=== PATIENT | female | born 1950 ===

== ENCOUNTER 2021-08-05 14:18 | Outpatient (RCR) | payer MEDICARE, MEDICAID, SELFPAY ==
--- NOTE | 2021-08-05 15:43 | REHOPWC ---
SEATING EVALUATION NOTIFICATION This is to notify provider that Krissy Conner participated in a power mobility device evaluation today. Recommendations were made specific to patient's needs. Seating Assessment documentation has been completed for detailed information on required equipment. The mobility device provider for this case is [facility] Please note that no further care plan will be developed on this account. Thank you for referring this patient to [facility]. Please review, sign, date and return this discharge summary INGRID. I have been updated about the patient's current status and I agree with discharge from the above service at this time. Referring Physician Date
== END 2021-08-06 16:39 | disposition home or self-care (01) ==
LOC: ANHPT 14:18
DX: Z46.89 Encounter for fitting and adjustment of other specified devices (principal); I63.9 Cerebral infarction, unspecified
CPT/HCPCS: 97163